=== PATIENT | male | born 1995 | race Caucasian/White ===

== ENCOUNTER 2017-01-12 15:31 | Emergency (ER) | payer BC ==
--- NOTE | 2017-01-12 16:04 | UC ---
Respiratory Complaint HPI - HPI Summary HPI Summary: PT IS A [employer] STUDENT. HE ATTENDED A GREEN PARTY on 01/05/17 and is concerned about potential meningitis exposure. However, the alliance party that the student who contracted meningitis was on 01/05/17/ TWO NIGHTS AGO PT HAD A PANIC ATTACK THINKING ABOUT BEING EXPOSED TO THE SICK STUDENT. HAD COLD SYMPTOMS THIS WEEK- SINUS CONGESTION. FEELING BETTER TODAY. Denies HUERTA, confusion, fever, nausea, vomiting, photophobia, rash and stiff neck. He is anxious about this and prefers to have the prophylactic cipro dose. only allergy is to sulfa. - History of Current Complaint Chief Complaint: UCGeneralIllness Stated Complaint: ANXIETY Time Seen by Provider: 01/12/17 16:02 - Allergies/Home Medications Allergies/Adverse Reactions: Allergies Allergy/AdvReac Type Severity Reaction Status Date / Time Sulfa Antibiotics Allergy Intermediate Rash Verified 01/12/17 15:40 Home Medications: Home Medications NK [No Home Medications Reported] 01/12/17 [History Confirmed 01/12/17] PMH/Surg Hx/FS Hx/Imm Hx Previously Healthy: Yes - Surgical History Surgical History: None - Family History Known Family History: Positive: Hypertension - Social History Alcohol Use: Occasionally Substance Use Type: Marijuana Smoking Status (MU): Former Smoker Type: Cigarettes Have You Smoked in the Last Year: Yes When Did the Patient Quit Smoking/Using Tobacco: THREE WEEKS AGO Review of Systems Constitutional: Negative Skin: Negative Eyes: Negative ENT: Nasal Discharge Respiratory: Negative Cardiovascular: Negative Gastrointestinal: Negative Genitourinary: Negative Motor: Negative Neurovascular: Negative Musculoskeletal: Negative Neurological: Negative Psychological: Anxious All Other Systems Reviewed And Are Negative: Yes Physical Exam Triage Information Reviewed: Yes Appearance: Well-Appearing, No Pain Distress, Well-Nourished Vital Signs: Initial Vital Signs Temp 97 F 01/12/17 15:40 Pulse 66 01/12/17 15:40 Resp 18 01/12/17 15:40 BP 162/88 01/12/17 15:40 Pulse Ox 98 01/12/17 15:40 Vital Signs Reviewed: Yes Eye Exam: Normal ENT Exam: Normal ENT: Positive: Hearing grossly normal, Pharynx normal, Nasal drainage, TMs normal. Negative: Pharyngeal erythema, TM bulging, TM dull, TM red, Tonsillar swelling, Tonsillar exudate Dental Exam: Normal Neck exam: Normal Neck: Positive: Supple, Nontender, No Lymphadenopathy. Negative: Nuchal Rigidity - FROM in flexion, extension and b/l rotation, Tenderness @, Enlarged Nodes @ Respiratory Exam: Normal Respiratory: Positive: Lungs clear, Normal breath sounds, No respiratory distress, No accessory muscle use Cardiovascular Exam: Normal Cardiovascular: Positive: RRR, No Murmur, Pulses Normal, Brisk Capillary Refill Abdominal Exam: Normal Abdomen Description: Positive: Nontender, Soft Musculoskeletal Exam: Normal Neurological Exam: Normal Neurological: Positive: Alert, Muscle Tone Normal, Other: - CR III-XII intact, speach is clear and coherent with logical thought content and conversation. gait is nml.. Negative: Fatigued, Lethargic, Unresponsive Psychological Exam: Normal Skin Exam: Normal Skin: Negative: rashes UC Diagnostic Evaluation - Laboratory O2 Sat by Pulse Oximetry: 98 Respiratory Course/Dx - Course Course Of Treatment: Low potential of exposure to meningitis 7 days ago. However the student who had NG meningitis was at a different alliance party the bight prior. He is anxious and prefers to have the prophylactic cipro dose. Discussed risks and benefits. - Differential Dx/Diagnosis Differential Diagnosis/HQI/PQRI: Other - URI Provider Diagnoses: exposure to communicable disease, URI Discharge - Discharge Plan Condition: Stable Disposition: HOME Patient Education Materials: Bacterial Meningitis (ED) Additional Instructions: Follow up at [facility], here or the ER with any questions or concerns. We have given you a dose of prophylactic cipro 500mgs here at [facility]. Your exposure was 7 days ago which is reassuring amount of time that has passed.
[2017-01-12] MEDS ORDERED: Ciprofloxacin TAB* 500 MG PO ONE (16:10)
[2017-01-12 16:29] VITALS: BP 154/76
== END 2017-01-12 16:25 | disposition home or self-care (01) ==
LOC: UCCORT 15:31
DX: J06.9 Acute upper respiratory infection, unspecified (principal); F41.9 Anxiety disorder, unspecified; J03.90 Acute tonsillitis, unspecified; R59.1 Generalized enlarged lymph nodes; Z20.818 Contact with and (suspected) exposure to other bacterial communicable diseases; Z86.19 Personal history of other infectious and parasitic diseases; Z88.2 Allergy status to sulfonamides; Z87.891 Personal history of nicotine dependence
CPT/HCPCS: 99202; A9270-GY; G0463